=== PATIENT | female | born 1955 | race Caucasian/White ===

== ENCOUNTER 2019-10-30 22:10 | Emergency (ER) | payer OTHER ==
[~2019-10-30] VITALS: Ht 157.5 cm; Wt 69.9 kg
[2019-10-30 22:17] VITALS: Ht 157.5 cm; Wt 69.9 kg
[2019-10-31 00:23] VITALS: BP 148/86
== END 2019-10-31 00:23 | disposition home or self-care (01) ==
LOC: ED 22:10
DX: S62.524A Nondisplaced fracture of distal phalanx of right thumb, initial encounter for closed fracture (principal); W23.0XXA Caught, crushed, jammed, or pinched between moving objects, initial encounter; Y93.89 Activity, other specified; Y92.89 Other specified places as the place of occurrence of the external cause; Y99.8 Other external cause status
CPT/HCPCS: Q0092